=== PATIENT | female | born 1940 | race Caucasian/White ===

== ENCOUNTER 2016-04-03 22:08 | Emergency (ER) | payer MEDICARE ==
[2016-04-03 22:44] LABS: SPECIFIC GRAVITY 1.025 (1.001-1.030); URINE APPEARANCE HAZY; URINE BILIRUBIN NEGATIVE (NEGATIVE); URINE BLOOD 2+ (NEGATIVE); URINE COLOR YELLOW; URINE GLUCOSE (UA) NEGATIVE (NEGATIVE); URINE LEUKOCYTE ESTERASE 2+ (NEGATIVE); URINE NITRITE POSITIVE (NEGATIVE); URINE PROTEIN 1+ (NEGATIVE); URINE UROBILINOGEN NORMAL (0-1 mg/dl)
[2016-04-03 22:51] LABS: URINE BACTERIA 2+; URINE EPITHELIAL CELLS 0-2 /hpf; URINE WBC 25-35 /hpf
[2016-04-03] MEDS ORDERED: SODIUM CHLORIDE 0.9% 0 ML ONE (22:53)
[2016-04-03] MEDS ORDERED: ONDANSETRON 4 MG/2ML 2 ML VIAL ONE (22:53)
[2016-04-03] MEDS ORDERED: ACETAMINOPHEN 325 MG TABLET ONE (22:56)
[2016-04-03] MEDS ORDERED: ONDANSETRON 4 MG ODT TAB ONE (22:57)
[2016-04-03] MEDS ORDERED: CEPHALEXIN 500 MG CAPSULE ONE (22:57)
== END 2016-04-03 23:21 | disposition home or self-care (01) ==
LOC: ED 22:08
DX: N39.0 Urinary tract infection, site not specified (principal); G30.9 Alzheimer's disease, unspecified; F02.80 Dementia in other diseases classified elsewhere, unspecified severity, without behavioral disturbance, psychotic disturbance, mood disturbance, and anxiety; Z79.899 Other long term (current) drug therapy
CPT/HCPCS: 87086; 87186; 81001; 87077; 99283 ×2; 51701; A9270 ×3

== ENCOUNTER 2016-05-23 18:36 | Emergency (ER) | payer MEDICARE ==
[2016-05-23 19:21] LABS: SPECIFIC GRAVITY 1.025 (1.001-1.030); URINE BILIRUBIN NEGATIVE (NEGATIVE); URINE BLOOD 2+ (NEGATIVE); URINE GLUCOSE (UA) NEGATIVE (NEGATIVE); URINE LEUKOCYTE ESTERASE TRACE (NEGATIVE); URINE NITRITE POSITIVE (NEGATIVE); URINE PROTEIN TRACE (NEGATIVE); URINE UROBILINOGEN 4 mg/dL (0-1 mg/dl)
[2016-05-23 19:22] LABS: URINE APPEARANCE CLOUDY; URINE COLOR AMBER
[2016-05-23 19:29] LABS: URINE BACTERIA 4+; URINE EPITHELIAL CELLS 0-1 /hpf; URINE RBC 0-2 /hpf
[2016-05-23] MEDS ORDERED: CEPHALEXIN 500 MG CAPSULE ONE (20:05)
[2016-05-23] MEDS ORDERED: ENEMA--adult 1 EACH ONE ×2 (20:22→20:40)
== END 2016-05-23 21:46 | disposition home or self-care (01) ==
LOC: ED 18:36
DX: N39.0 Urinary tract infection, site not specified (principal); G30.9 Alzheimer's disease, unspecified; F02.80 Dementia in other diseases classified elsewhere, unspecified severity, without behavioral disturbance, psychotic disturbance, mood disturbance, and anxiety
CPT/HCPCS: 87086; 87186; 81001; 99284; 99283; A9270 ×3

== ENCOUNTER 2016-06-27 01:11 | Emergency (ER) | payer MEDICARE | END 2016-06-27 03:54 | disposition home or self-care (01) | LOC: ED 01:11 | DX: K59.00 Constipation, unspecified (principal); G30.9 Alzheimer's disease, unspecified; F02.80 Dementia in other diseases classified elsewhere, unspecified severity, without behavioral disturbance, psychotic disturbance, mood disturbance, and anxiety; Z79.899 Other long term (current) drug therapy; Z79.52 Long term (current) use of systemic steroids ==